=== PATIENT | male | born 1960 | race Caucasian/White ===

== ENCOUNTER 2023-11-08 14:30 | Outpatient (CLI) | payer MEDICARE | END 2023-11-08 14:31 | disposition home or self-care (01) | LOC: BICMAMMO 14:30 | PROVIDERS: ATTEND Internal Medicine | DX: Z13.820 Encounter for screening for osteoporosis (principal); Z79.85 Long-term (current) use of injectable non-insulin antidiabetic drugs | CPT/HCPCS: 77080 ==